=== PATIENT | female | born 1995 | race Caucasian/White ===

== ENCOUNTER → 2021-02-10 | Outpatient (CLI) | payer OTHER ==
--- NOTE | 2021-02-10 16:46 | REP ---
INDICATION: Focal breast pain and lump COMPARISON: None TECHNIQUE: Sonographic evaluation of the left breast as described above FINDINGS: There are no cystic or solid masses. IMPRESSION: ACR category 2 benign left breast ultrasound as described above. <Electronically signed by Ever Reyna > 02/10/21 [id number]
== END ==
LOC: M WHC 15:27
PROVIDERS: ATTEND Nurse Practitioner Women's Health
DX: N64.2 Atrophy of breast (principal)